=== PATIENT | male | born 1950 | race Caucasian/White ===

== ENCOUNTER 2018-09-28 11:14 | Emergency (ER) | payer OTHER, MEDICARE ==
[~2018-09-28] VITALS: Ht 167.6 cm; Wt 95.3 kg
[~2018-09-28 11:14] MED LIST: ACTOS 30 MG TAB30 MG; AMBIEN PO; AVAPRO; FLOMAX PO; GLUCOPHAGE500 MG; LAMOTRIGINE150 MG; LEXAPRO20 MG; LOVASTATIN PO; PERCOCET 5-3251 EACH PO; PHENERGAN 25 MG25 M1 PO
[2018-09-28] MEDS ORDERED: GABAPENTIN 100100 MG PO (11:24)
[2018-09-28] MEDS ORDERED: HYDROCHLOROTH12.5 M1 PO (11:24)
[2018-09-28] MEDS ORDERED: LIORESAL 10 MG10 MG PO (11:25)
[2018-09-28] MEDS ORDERED: XANAX1 MG PO (11:25)
[2018-09-28] MEDS ORDERED: MELATONIN5 M1 PO (11:25)
[2018-09-28] MEDS ORDERED: MILK THISTLE87.5 MG PO (11:26)
[2018-09-28] MEDS ORDERED: VITAMIN C100 MG PO (11:26)
[2018-09-28] MEDS ORDERED: GINKGO BILOBA30 MG PO (11:26)
[2018-09-28] MEDS ORDERED: NORCO 5-325 TA1 EACH PO (13:58)
[2018-09-28 15:05] VITALS: BP 125/80
== END 2018-09-28 14:48 | disposition home or self-care (01) ==
LOC: M.ERS 11:14
DX: S22.42XA Multiple fractures of ribs, left side, initial encounter for closed fracture (principal); S50.02XA Contusion of left elbow, initial encounter; M54.2 Cervicalgia; E11.9 Type 2 diabetes mellitus without complications; F32.9 Major depressive disorder, single episode, unspecified; F41.9 Anxiety disorder, unspecified; Z87.442 Personal history of urinary calculi; Z88.8 Allergy status to other drugs, medicaments and biological substances; V29.49XA Motorcycle driver injured in collision with other motor vehicles in traffic accident, initial encounter; Y93.89 Activity, other specified; Y92.89 Other specified places as the place of occurrence of the external cause; Y99.8 Other external cause status

== ENCOUNTER → 2019-05-16 | Outpatient (CLI) | payer MEDICARE, OTHER ==
[~2019-05-16] MED LIST changes: +GABAPENTIN 100100 MG PO; +GINKGO BILOBA30 MG PO; +HYDROCHLOROTH12.5 M1 PO; +LIORESAL 10 MG10 MG PO; +MELATONIN5 M1 PO; +MILK THISTLE87.5 MG PO; +NORCO 5-325 TA1 EACH PO; +VITAMIN C100 MG PO; +XANAX1 MG PO
== END ==
LOC: M.MRI 05-09 08:30
DX: S46.812A Strain of other muscles, fascia and tendons at shoulder and upper arm level, left arm, initial encounter (principal); M19.012 Primary osteoarthritis, left shoulder; M25.712 Osteophyte, left shoulder; X58.XXXA Exposure to other specified factors, initial encounter; Y93.89 Activity, other specified; Y92.89 Other specified places as the place of occurrence of the external cause; Y99.8 Other external cause status

== ENCOUNTER → 2019-06-13 | Outpatient (CLI) | payer MEDICARE, OTHER | LOC: M.ULTRA 10:36 | DX: I65.22 Occlusion and stenosis of left carotid artery (principal) ==

== ENCOUNTER → 2021-02-28 | Outpatient (CLI) | payer OTHER | LOC: M.CT 08:34 | PROVIDERS: ATTEND Internal Medicine Cardiovascular Disease | DX: Z13.6 Encounter for screening for cardiovascular disorders (principal); I25.10 Atherosclerotic heart disease of native coronary artery without angina pectoris ==